=== PATIENT | female | born 1950 ===

== ENCOUNTER 2016-08-07 12:37 | Emergency (ER) | payer MEDICARE, OTHER ==
[2016-06-03 09:45] VITALS: BMI 31.7
[2016-08-07 12:54] VITALS: RESP 16
--- NOTE | 2016-08-07 13:25 | ED PDOC ---
HPI: Back Time Seen by Provider: 08/07/16 13:24 Chief Complaint (Nursing): Back Pain Chief Complaint (Provider): low back pain History Per: Patient Additional Complaint(s): 65-year-old female presents to emergency department with left-sided lower back pain that radiates down her left leg for the past 3 days. Patient denies recent trauma or injury but states that she fell injuring her lower back 2 years ago and is not sure if this contributing to her current pain. Patient has had intermittent pain to lower back over the past couple of years but today it got worse prompting ED visit. Patient states that she did not take any medicine for pain relief. She denies any bowel or bladder dysfunction. No fever or chills. She rates current pain as a 7 out of 10, worse with walking, better with rest. Past Medical History Reviewed: Historical Data, Nursing Documentation, Vital Signs Vital Signs: Last Vital Signs Temp 97.0 F L 08/07/16 12:50 Pulse 84 08/07/16 12:50 Resp 16 08/07/16 12:50 BP 133/69 08/07/16 12:50 Pulse Ox 100 08/07/16 12:50 - Medical History PMH: Arthritis (GENERALIZED), Diverticulitis, Gall Bladder Disease, HTN, Hypercholesterolemia - Surgical History Surgical History: Cholecystectomy Other surgeries: vein removal left leg - Family History Family History: States: No Known Family Hx - Living Arrangements Living Arrangements: With Family - Social History Current smoker - smoking cessation education provided: No Alcohol: None Drugs: Denies - Home Medications Home Medications: Ambulatory Orders Medication Instructions Recorded Pravastatin Sodium [Pravachol] 40 mg PO DAILY 12/05/13 Ergocalciferol (Vitamin D2) 50,000 unit PO QWK 06/03/16 [Vitamin D2] Naphazoline HCl/Pheniramine 2 drop OU BID 06/03/16 [Allergy Eye Drops] Pill To Control Urine 1 tab PO DAILY 06/03/16 Cyclobenzaprine [Cyclobenzaprine 10 mg PO TID PRN #20 tab 08/07/16 HCl] Ibuprofen [Motrin Tab] 800 mg PO Q8 PRN #20 tab 08/07/16 - Allergies Allergies/Adverse Reactions: Allergies Allergy/AdvReac Type Severity Reaction Status Date / Time No Known Allergies Allergy Verified 08/07/16 12:50 Review of Systems ROS Statement: Except As Marked, All Systems Reviewed And Found Negative Constitutional: Negative for: Fever Cardiovascular: Negative for: Chest Pain Respiratory: Negative for: Cough Gastrointestinal: Negative for: Nausea, Vomiting Genitourinary Female: Negative for: Dysuria, Frequency, Incontinence, Hematuria Musculoskeletal: Positive for: Back Pain, Leg Pain Physical Exam - Reviewed Nursing Documentation Reviewed: Yes Vital Signs Reviewed: Yes - Physical Exam Appears: Positive for: Well, Non-toxic, No Acute Distress Skin: Negative for: Rash Eye Exam: Positive for: EOMI, PERRL Cardiovascular/Chest: Positive for: Regular Rate, Rhythm Respiratory: Positive for: Normal Breath Sounds. Negative for: Respiratory Distress Gastrointestinal/Abdominal: Positive for: Soft. Negative for: Tenderness, Distended, Guarding, Rebound Back: Positive for: L CVA Tenderness (moderate), Vertebral Tenderness ( Tenderness and muscle spasm left lower lumbar region, straight leg raise positive at 30, negative on the right), Muscle Spasm (Left lower lumbar region) . Negative for: R CVA Tenderness Extremity: Negative for: Pedal Edema, Calf Tenderness Neurologic/Psych: Positive for: Alert, Oriented - Laboratory Results Result Diagrams: 08/07/16 14:30 08/07/16 14:30 Urine dip results: Positive for: Blood (small). Negative for: Leukocyte Esterase, Nitrate, Ketones, Glucose, Bilirubin, Protein - ECG O2 Sat by Pulse Oximetry: 100 Pulse Ox Interpretation: Normal - Other Rad L/S Spine X-ray X-Ray: Interpreted by Me, Viewed By Me X-Ray Interpretation: no fx, no dis CT abd and pelvis without contrast X-Ray: Read By Radiologist X-Ray Interpretation: see below Medical Decision Making Medical Decision Makin65 year old with left side back pain and leg pain Plan: Urine dip X-ray L/S Spine x-ray U dip positive for blood, CT abd labs ordered CBC CMP UA and culture CT abd and pelvis without contrast IVF IV toradol PO flexeril CT: Minimal right hydronephrosis and hydroureter. No evidence of obstructive calculus. Patient educated on diagnostic test results. All questions answered. Pain in improved after meds given. Prescriptions given for Motrin and Flexeril. Patient was advised to follow up with primary doctor or orthopedist in 2-3 days, referral for orthopedist given. Disposition - Clinical Impression Clinical Impression: Back strain, Back pain - Patient ED Disposition Is Patient to be Admitted: No Counseled Patient/Family Regarding: Studies Performed, Diagnosis, Need For Followup, Rx Given - Disposition Referrals: Faye Schaeffer MD [Family Provider] - Karla Lundberg MD [Staff Provider] - Disposition: Routine/Home Disposition Time: 16:52 Condition: IMPROVED Additional Instructions: Take prescription meds as directed. Follow-up with primary doctor or orthopedist in 2-3 days. Prescriptions: Cyclobenzaprine [Cyclobenzaprine HCl] 10 mg PO TID PRN #20 tab PRN Reason: Muscle Spasm Ibuprofen [Motrin Tab] 800 mg PO Q8 PRN #20 tab PRN Reason: Pain, Moderate (4-7) Instructions: Back Pain (ED) Print Language: [place] Results - Lab Results Lab Results: 08/07/16 08/07/16 08/07/16 14:30 14:30 14:30 WBC 7.6 RBC 4.85 Hgb 13.1 Hct 40.8 MCV 84.0 MCH 27.1 MCHC 32.3 L RDW 14.4 Plt Count 199 MPV 9.1 Neut % (Auto) 52.2 Lymph % (Auto) 36.2 [place] % (Auto) 10.3 H Eos % (Auto) 0.8 Baso % (Auto) 0.5 Neut # 3.9 Lymph # 2.7 [place] # 0.8 Eos # 0.1 Baso # 0.0 Sodium 142 Potassium 3.9 Chloride 103 Carbon Dioxide 26 Anion Gap 17 BUN 14 Creatinine 0.6 L Est GFR ( Amer) > 60 Est GFR (Non-Af Amer) > 60 Random Glucose 91 Calcium 9.1 Total Bilirubin 0.3 AST 27 ALT 34 Alkaline Phosphatase 76 Total Protein 8.4 H Albumin 4.6 Globulin 3.8 Albumin/Globulin Ratio 1.2 Urine Color Straw Urine Clarity Clear Urine pH 6.0 Ur Specific [place] 1.008 Urine Protein Negative Urine Glucose (UA) Neg Urine Ketones Negative Urine Blood Small Urine Nitrate Negative Urine Bilirubin Negative Urine Urobilinogen 0.2-1.0 Ur Leukocyte Esterase Neg Urine RBC (Auto) < 1 Ur Squamous Epith Cells 1
[2016-08-07] MEDS ORDERED: Sodium Chloride 0.9% 1,000 ML IV STA (14:10)
[2016-08-07 14:47] LABS: BASO % 0.5 % (0.0-2.0); EOS # 0.1 K/uL (0.0-0.7); EOS % 0.8 % (0.0-4.0); HEMATOCRIT 40.8 % (34.0-47.0); LYMPH # 2.7 K/uL (1.0-4.3); LYMPH % 36.2 % (20.0-40.0); MEAN CORPUSCULAR HEMOGLOBIN 27.1 pg (27.0-31.0); MEAN CORPUSCULAR HGB CONC 32.3 g/dL (33.0-37.0); MEAN PLATELET VOLUME 9.1 fl (7.2-11.7); MONO # 0.8 K/uL (0.0-0.8); MONO % 10.3 % (0.0-10.0); NEUT # 3.9 K/uL (1.8-7.0); NEUT % 52.2 % (50.0-75.0); NRBC % 0.2 % (0.0-0.0); RED CELL DISTRIBUTION WIDTH 14.4 % (11.5-14.5); WHITE BLOOD COUNT 7.6 K/uL (4.8-10.8)
[2016-08-07 14:53] LABS: RBC URINE < 1 /hpf (0-3); URINE BILIRUBIN NEGATIVE (NEGATIVE); URINE BLOOD SMALL (NEGATIVE); URINE COLOR STRAW (YELLOW); URINE GLUCOSE (UA) NEG (Normal); URINE KETONE NEGATIVE (NEGATIVE); URINE LEUKOCYTE ESTERASE NEG Leu/uL (Negative); URINE PROTEIN NEGATIVE (NEGATIVE); URINE UROBILINOGEN 0.2-1.0 mg/dL (0.2-1.0)
[2016-08-07 14:56] LABS: ALB/GLOB RATIO 1.2 (1.0-2.1); ALKALINE PHOSPHATASE 76 U/L (38-126); ALT/SGPT 34 U/L (9-52); AST/SGOT 27 U/L (14-36); BILIRUBIN,TOTAL 0.3 mg/dl (0.2-1.3); BLOOD UREA NITROGEN 14 mg/dl (7-17); CALCIUM 9.1 mg/dL (8.4-10.2); CARBON DIOXIDE 26 mmol/L (22-30); CHLORIDE 103 mmol/L (98-107); GFR AFRICAN-AMERICAN > 60; GLUCOSE,RANDOM 91 mg/dL (65-105); POTASSIUM 3.9 MMOL/L (3.6-5.0); SODIUM 142 mmol/l (132-148); TOTAL PROTEIN 8.4 G/DL (6.3-8.2)
--- NOTE | 2016-08-07 16:36 | CT ---
PROCEDURE: CT Abdomen and Pelvis without intravenous contrast HISTORY: back pain, blood urine COMPARISON: None. TECHNIQUE: Technique. Contrast Dose: Radiation dose: Total exam DLP = 914 mGy-cm. This CT exam was performed using one or more of the following dose reduction techniques: Automated exposure control, adjustment of the mA and/or kV according to patient size, and/or use of iterative reconstruction technique. FINDINGS: LOWER THORAX: Unremarkable. LIVER: Unremarkable. No gross lesion or ductal dilatation. GALLBLADDER AND BILE DUCTS: Absent.. PANCREAS: Unremarkable. No gross lesion or ductal dilatation. SPLEEN: Unremarkable. ADRENALS: Unremarkable. No mass. KIDNEYS AND URETERS: Unremarkable. Minimal right hydronephrosis and hydroureter. No evidence of obstructive calculus. VASCULATURE: Unremarkable. No aortic aneurysm. BOWEL: Unremarkable. No obstruction. No gross mural thickening. APPENDIX: Unremarkable. Normal appendix. PERITONEUM: Unremarkable. No free fluid. No free air. LYMPH NODES: Unremarkable. No enlarged lymph nodes. BLADDER: Unremarkable. REPRODUCTIVE: Unremarkable. BONES: No acute fracture. OTHER FINDINGS: None. IMPRESSION: Minimal right Mone nephrosis and hide your Year Door. No evidence of obstructive calculus..
--- NOTE | 2016-08-07 16:46 | RAD ---
PROCEDURE: Radiographs of the Lumbar Spine. HISTORY: pain No antecedent history of trauma provided. COMPARISON: No prior. FINDINGS: BONES: Normal alignment. No listhesis. No fracture. DISC SPACES: Unremarkable. OTHER FINDINGS: None. IMPRESSION: No significant or acute findings to account for/ related to the clinical presentation. Concordant results with the preliminary interpretation rendered by the emergency department physician procedure.
[2016-08-07 17:00] VITALS: BP 130/70; PULSE 71; TEMP 98; O2SAT 98
== END 2016-08-07 17:01 | disposition home or self-care (01) ==
LOC: H.ER 12:37
DX: M54.9 Dorsalgia, unspecified (principal); R10.9 Unspecified abdominal pain
CPT/HCPCS: 72100; 74176; 80053; 81003; 85025; 87086; 96361; 96374; 99283; J1885; J7040

== ENCOUNTER 2017-09-26 08:26 | Emergency (ER) | payer MEDICARE, OTHER ==
[2017-09-26 08:33] VITALS: BMI 31.8
[2017-09-26] MEDS ORDERED: Naproxen 500 MG TAB PO ONE ×2 (09:18→09:23)
--- NOTE | 2017-09-26 09:36 | ED PDOC ---
HPI: Trauma/Fall - HPI Time Seen by Provider: 09/26/17 09:10 Chief Complaint (Nursing): Back Pain Chief Complaint (Provider): Left Shoulder, Left Ribs, Low Back Pain History Per: Patient History/Exam Limitations: no limitations Onset/Duration Of Symptoms: Other (prior to arrival) Additional Complaint(s): 67 y/o female with PMHx of arthritis, HTN, hypercholesterolemia, diverticulitis , and gall bladder disease presenting for evaluation of left shoulder, left rib , and low back pain s/p trip and fall three days prior to arrival. Patient states she was walking outside this morning when she tripped on her sandals against uneven pavement and fell forward onto her left side, hitting her left breast, left shoulder, and left hip. She says she was able to get up and ambulate to the ED. Patient is complaining of pain, especially to the area under her left breast, left ribs, left scapular area, and left lower back. She denies any head injury or LOC. She denies any shortness of breath, nausea, vomiting, or hematuria. PMD: Dr. Schaeffer ([facility]) Past Medical History Reviewed: Historical Data, Nursing Documentation, Vital Signs Vital Signs: Last Vital Signs Temp 98.9 F 09/26/17 08:32 Pulse 73 09/26/17 08:32 Resp BP 120/74 09/26/17 08:32 Pulse Ox 98 09/26/17 08:32 - Medical History PMH: Arthritis (GENERALIZED), Diverticulitis, Gall Bladder Disease, HTN, Hypercholesterolemia Denies: Chronic Kidney Disease - Surgical History Surgical History: Cholecystectomy - Family History Family History: States: Unknown Family Hx - Social History Current smoker - smoking cessation education provided: No Alcohol: None Drugs: Denies - Home Medications Home Medications: Ambulatory Orders Medication Instructions Recorded Pravastatin Sodium [Pravachol] 40 mg PO DAILY 12/05/13 Ergocalciferol (Vitamin D2) 50,000 unit PO QWK 06/03/16 [Vitamin D2] Naphazoline HCl/Pheniramine 2 drop OU BID 06/03/16 [Allergy Eye Drops] Pill To Control Urine 1 tab PO DAILY 06/03/16 Cyclobenzaprine [Cyclobenzaprine 10 mg PO TID PRN #20 tab 08/07/16 HCl] Ibuprofen [Motrin Tab] 800 mg PO Q8 PRN #20 tab 08/07/16 Acetaminophen [Tylenol 325mg tab] 650 mg PO Q6H PRN #50 tab 09/26/17 Naproxen [Naprosyn] 500 mg PO BID PRN #20 tablet 09/26/17 - Allergies Allergies/Adverse Reactions: Allergies Allergy/AdvReac Type Severity Reaction Status Date / Time No Known Allergies Allergy Verified 08/07/16 12:50 Review of Systems ROS Statement: Except As Marked, All Systems Reviewed And Found Negative Cardiovascular: Negative for: Chest Pain Respiratory: Negative for: Shortness of Breath Gastrointestinal: Negative for: Nausea, Vomiting Genitourinary Female: Negative for: Hematuria Musculoskeletal: Positive for: Shoulder Pain, Back Pain, Other (left breast, left ribs area). Negative for: Neck Pain Neurological: Negative for: Headache Physical Exam - Reviewed Nursing Documentation Reviewed: Yes Vital Signs Reviewed: Yes - Physical Exam Appears: Positive for: Non-toxic, No Acute Distress Head Exam: Positive for: ATRAUMATIC, NORMAL INSPECTION, NORMOCEPHALIC Skin: Positive for: Normal Color, Warm, Dry. Negative for: Rash Eye Exam: Positive for: EOMI, Normal appearance, PERRL Neck: Positive for: Normal, Painless ROM, Supple Cardiovascular/Chest: Positive for: Regular Rate, Rhythm. Negative for: Chest Non Tender (mild tenderness on palpation of chest underneath left breast to left shoulder), Murmur Respiratory: Positive for: Normal Breath Sounds. Negative for: Respiratory Distress Gastrointestinal/Abdominal: Positive for: Normal Exam, Soft. Negative for: Tenderness Back: Positive for: Vertebral Tenderness (lumbar spine) Extremity: Positive for: Normal ROM (moving all extremities without restriction) . Negative for: Pedal Edema, Deformity, Swelling Neurologic/Psych: Positive for: Alert, Oriented (x3). Negative for: Motor/ Sensory Deficits - ECG O2 Sat by Pulse Oximetry: 98 (RA) Pulse Ox Interpretation: Normal Medical Decision Making Medical Decision Makin:17 Impression: Low back pain Plan: -X-ray lumbar spine -X-ray left ribs and PA chest -Naproxen 500mg PO -Reevaluation Scribe Attestation: Documented by Quan Bowie, acting as a scribe for Cindy Bautista MD. Provider Scribe Attestation: All medical record entries made by the Scribe were at my direction and personally dictated by me. I have reviewed the chart and agree that the record accurately reflects my personal performance of the history, physical exam, medical decision making, and the department course for this patient. I have also personally directed, reviewed, and agree with the discharge instructions and disposition. Disposition - Clinical Impression Clinical Impression: Muscle strain, Chest wall contusion - Patient ED Disposition Is Patient to be Admitted: No Doctor Will See Patient In The: Office Counseled Patient/Family Regarding: Diagnosis, Need For Followup, Rx Given - Disposition Referrals: Faye Schaeffer MD [Family Provider] - Disposition: Routine/Home Disposition Time: 10:15 Condition: STABLE Prescriptions: Acetaminophen [Tylenol 325mg tab] 650 mg PO Q6H PRN #50 tab PRN Reason: Pain, Mild (1-3) Naproxen [Naprosyn] 500 mg PO BID PRN #20 tablet PRN Reason: Pain, Moderate (4-7) Instructions: Muscle Strain, Contusion (DC) Forms: [place] [employer] ([place]ambodian) Print Language: MONGOLIAN - POA Present On Arrival: Falls Or Trauma
[2017-09-26 10:42] VITALS: BP 118/64; PULSE 68; RESP 17; TEMP 98.7; O2SAT 99
--- NOTE | 2017-09-26 11:10 | RAD ---
Date of service: 09/26/2017 PROCEDURE: Radiographs of the Chest and Left Ribs. HISTORY: trip and fall COMPARISON: Chest radiographs 11/27/2013 and 08/10/2011.. TECHNIQUE: Frontal radiograph of the chest and multiple oblique radiographs of the left ribs were obtained. FINDINGS: LEFT RIBS: No fracture or focal lesion visualized. LUNGS: No interval infiltrate identified bilaterally. However, an ovoid density seen at the inferior inferolateral right base approaching the costophrenic sulcus probably reflecting a nipple shadow. Confirmation chest radiograph with nipple markers is advised. PLEURA: No pneumothorax or pleural fluid. CARDIOVASCULAR: Normal sized heart. No pulmonary vascular congestion. OTHER FINDINGS: Surgical clips are seen at the right upper quadrant abdomen. IMPRESSION: 1. No left rib fracture identified. 2. The nipple shadow was likely present the inferior right lung zone approaching the right costophrenic sulcus. Follow-up chest radiograph with nipples marked is advised to exclude potential lesion. This was not seen in prior chest radiographs 11/27/2013 or 08/10/2011. PA review assigned. Findings discussed with Dr. Bautista with written down read back verification 09/26/2017 11:05 a.m..
--- NOTE | 2017-09-26 11:18 | RAD ---
Date of service: 09/26/2017 PROCEDURE: Radiographs of the Lumbar Spine. HISTORY: trip and fall COMPARISON: No prior. FINDINGS: BONES: Normal alignment. No listhesis. No fracture. No spondylolysis. Advanced facet degenerative changes seen at L5-S1 and a mild to moderate throughout the remainder of the lumbar spine. Limited multilevel spondylosis appreciated at the mid to inferior levels. No destructive bony lesion identified. DISC SPACES: Adequate disc height preservation is noted. OTHER FINDINGS: None. IMPRESSION: No fracture or spondylolisthesis. Mild multilevel lumbar spondylosis mid to inferior lumbar spine. Advanced facet joint degenerative arthropathy L5-S1, [id number] otherwise.
== END 2017-09-26 10:40 | disposition home or self-care (01) ==
LOC: H.ER 08:26
DX: S20.219A Contusion of unspecified front wall of thorax, initial encounter (principal); W01.0XXA Fall on same level from slipping, tripping and stumbling without subsequent striking against object, initial encounter; Y92.89 Other specified places as the place of occurrence of the external cause; E78.00 Pure hypercholesterolemia, unspecified; I10 Essential (primary) hypertension